=== PATIENT | female | born 2000 | race Caucasian/White ===

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

== ENCOUNTER 2022-11-05 16:37 | Emergency (ER) | payer OTHER ==
[2022-11-05 17:05] VITALS: RESP 20; BMI 32.8
[2022-11-05] MEDS ORDERED: IBUPROFEN 600 MG TABLET (FP) PO ONE ×2 (17:49→18:05)
[2022-11-05 18:19] VITALS: BP 118/51; PULSE 89; TEMP 98.4
[2022-11-05 18:20] LABS: THROAT:GRP A STREP NOT DETECTED (NOTDETECTED)
== END 2022-11-05 18:26 | disposition home or self-care (01) ==
LOC: JER 16:37 → JERFT 16:37
DX: R05.9 Cough, unspecified (principal); R50.9 Fever, unspecified; R13.10 Dysphagia, unspecified; J02.9 Acute pharyngitis, unspecified; J03.90 Acute tonsillitis, unspecified; Z20.822 Contact with and (suspected) exposure to COVID-19
CPT/HCPCS: 0241U-QW; 87651; 99283-25

== ENCOUNTER 2023-06-11 14:24 | Emergency (ER) | payer OTHER ==
[2023-06-11 14:30] VITALS: BP 132/71; PULSE 108; RESP 20; TEMP 98.9; BMI 64.8
[2023-06-11] MEDS ORDERED: IBUPROFEN 600 MG TABLET (FP) PO ONE ×2 (15:29→15:39)
== END 2023-06-11 17:04 | disposition home or self-care (01) ==
LOC: JER 14:24 → JERFT 14:24
DX: R50.9 Fever, unspecified (principal); J10.1 Influenza due to other identified influenza virus with other respiratory manifestations; Z20.822 Contact with and (suspected) exposure to COVID-19
CPT/HCPCS: 0241U-QW; 93005; 93010; 99284-25

== ENCOUNTER 2023-12-20 11:51 | Emergency (ER) | payer OTHER ==
[2023-12-20 12:02] VITALS: BP 118/74; PULSE 102; RESP 18; TEMP 98.8; BMI 65.7
[2023-12-20] MEDS ORDERED: ACETAMINOPHEN INJECTION 100 ML IVPB ONE (13:34)
[2023-12-20 13:35] LABS: BASO % 0.5 % (0-2.0); EOS % 0.9 % (0-4.5); HEMATOCRIT 43.1 % (32.4-45.2); HEMOGLOBIN 13.7 GM/dL (10.7-15.3); LYMPH % 22.3 % (8-40); MCHC 31.8 g/dl (32.0-36.0); MEAN CELL VOLUME 81.7 fl (80-96); MEAN PLT VOLUME 7.1 fl (7.5-11.1); MONO % 6.5 % (3.8-10.2); NEUT % 69.8 % (42.8-82.8); PLATELET COUNT 370 10^3/uL (134-434); RBC 5.28 M/mm3 (3.60-5.2); RDW 15.5 % (11.6-15.6); WHITE BLOOD COUNT 14.2 K/mm3 (4.0-10.0)
[2023-12-20] MEDS: SODIUM CHLORIDE 0.9% 500 ML INFUS.BAG IV ONE (13:41)
[2023-12-20] MEDS: ACETAMINOPHEN 1000 MG/100 ML BAG IVPB ONE (13:41)
[2023-12-20 13:51] LABS: POTASSIUM 4.1 mmol/L (3.5-5.1)
[2023-12-20 13:53] LABS: CALCIUM 9.2 mg/dL (8.5-10.1)
[2023-12-20 13:55] LABS: ALBUMIN 3.4 g/dl (3.4-5.0); BLOOD UREA NITROGEN 7.4 mg/dL (7-18)
[2023-12-20 13:57] LABS: CREATININE 0.6 mg/dL (0.55-1.3)
[2023-12-20 13:59] LABS: BILIRUBIN,TOTAL 0.4 mg/dL (0.2-1); TOT PROT 7.8 g/dl (6.4-8.2)
[2023-12-20] MEDS ORDERED: KETOROLAC TROMETHAMINE 30 MG/1 ML VIAL ONE (18:21)
[2023-12-20] MEDS ORDERED: DEXAMETHASONE SOD PHOSPHATE 10 MG/1 ML VIAL ONE (18:21)
[2023-12-20] MEDS: DEXAMETHASONE SOD PHOSPHATE 10 MG/1 ML VIAL IVPUSH ONE (18:30)
[2023-12-20] MEDS: KETOROLAC TROMETHAMINE 30 MG/1 ML VIAL IVPUSH ONE (18:30)
== END 2023-12-20 18:39 | disposition home or self-care (01) ==
LOC: JERFT 11:51
PROC: 3E033GC Introduction of Other Therapeutic Substance into Peripheral Vein, Percutaneous Approach (ICD-10-PCS; principal; 2023-12-20)
PROC: 3E033NZ Introduction of Analgesics, Hypnotics, Sedatives into Peripheral Vein, Percutaneous Approach (ICD-10-PCS; 2023-12-20)
PROC: 3E0333Z Introduction of Anti-inflammatory into Peripheral Vein, Percutaneous Approach (ICD-10-PCS; 2023-12-20)
DX: J03.91 Acute recurrent tonsillitis, unspecified (principal); R07.0 Pain in throat
CPT/HCPCS: 36415; 70491-TC; 80053; 84703; 85025; 87651; 99285-25; J0131; J1100; Q9967